=== PATIENT | female | born 1985 | race Caucasian/White ===

== ENCOUNTER 2017-05-10 18:23 | Emergency (ER) | payer MEDICAID ==
[~2017-05-10] VITALS: Ht 160 cm; Wt 80.0 kg
[~2017-05-10 18:23] MED LIST: ACET325T14 PO; ALPR2TAB2 PO; BUSP10TA PO; DIAZ5TAB PO; ESTR2TAB4 PO; GABA600T2 PO; HYDR-3138 PO; HYDR-3307 PO; HYDR2TAB29 PO; HYDR50CA PO; IBUP-1222 PO; IBUP400T PO; PROM25TA10 PO; SERT100T PO; ZIPR60CA2 PO
[2017-05-10 18:48] VITALS: BP 105/53
[2017-05-10] MEDS ORDERED: KETOROLAC 30 MG/1 ML ONE (18:55)
[2017-05-10] MEDS ORDERED: KETOROLAC 30 MG/1 ML IM ONE (19:00)
== END 2017-05-10 20:44 | disposition home or self-care (01) ==
LOC: ED 20:00
DX: S80.01XA Contusion of right knee, initial encounter (principal); S90.31XA Contusion of right foot, initial encounter; S70.02XA Contusion of left hip, initial encounter; S16.1XXA Strain of muscle, fascia and tendon at neck level, initial encounter; Z90.710 Acquired absence of both cervix and uterus; W19.XXXA Unspecified fall, initial encounter; Y93.89 Activity, other specified; Y99.8 Other external cause status; Y92.89 Other specified places as the place of occurrence of the external cause
CPT/HCPCS: 70450; 72125; 73502; 73564; 96372; 99284; J1885

== ENCOUNTER 2018-01-22 14:29 | Emergency (ER) | payer MEDICAID ==
[~2018-01-22] VITALS: Ht 160 cm; Wt 63.0 kg
[~2018-01-22 14:29] MED LIST changes: -HYDR-3138 PO; +HYDR-3237 PO; +IBUP-1221 PO; -IBUP400T PO
[2018-01-22] MEDS ORDERED: KETOROLAC 30 MG/1 ML IM ONE (15:00)
[2018-01-22] MEDS ORDERED: CYCLOBENZAPRINE 10 MG TABLET PO ONE (15:00)
[2018-01-22] MEDS ORDERED: CYCLOBENZAPRINE 10 MG TABLET ONE (15:02)
[2018-01-22] MEDS ORDERED: KETOROLAC 30 MG/1 ML ONE (15:02)
[2018-01-22] MEDS ORDERED: HYDROcodone/APAP 5/325 TABLET ONE (16:21)
[2018-01-22] MEDS ORDERED: HYDROcodone/APAP 5/325 TABLET PO ONE (16:30)
[2018-01-22 16:39] VITALS: BP 101/54
== END 2018-01-22 16:41 | disposition home or self-care (01) ==
LOC: ED 15:00
DX: M26.622 Arthralgia of left temporomandibular joint (principal); F17.200 Nicotine dependence, unspecified, uncomplicated
CPT/HCPCS: 70100; 96372; 99284; J1885

== ENCOUNTER 2018-06-01 08:30 | Emergency (ER) | payer MEDICAID ==
[~2018-06-01] VITALS: Ht 160 cm; Wt 57.7 kg
[2018-06-01] MEDS ORDERED: PROPARACAINE OPHTH 0.5%, 15ML EACHEYE ONE (09:00)
[2018-06-01] MEDS ORDERED: LORazepam 1MG TABLET PO ONE (09:00)
[2018-06-01] MEDS ORDERED: LORazepam 1MG TABLET ONE (09:07)
[2018-06-01] MEDS ORDERED: MAALOX/HYOSCYAMINE/LIDOCAINE 45 ML BTL ONE (09:19)
[2018-06-01] MEDS ORDERED: MAALOX/HYOSCYAMINE/LIDOCAINE 45 ML BTL PO ONE (09:30)
[2018-06-01 11:10] VITALS: BP 122/64
== END 2018-06-01 11:22 | disposition home or self-care (01) ==
LOC: ED 11:16
DX: L53.9 Erythematous condition, unspecified (principal); H57.10 Ocular pain, unspecified eye; G89.29 Other chronic pain; Z90.710 Acquired absence of both cervix and uterus; Y00.XXXA Assault by blunt object, initial encounter; Y93.89 Activity, other specified; Y92.098 Other place in other non-institutional residence as the place of occurrence of the external cause; Y99.8 Other external cause status
CPT/HCPCS: 70450; 99284

== ENCOUNTER 2018-07-19 07:46 | Emergency (ER) | payer MEDICAID ==
[~2018-07-19] VITALS: Ht 160 cm; Wt 62.0 kg
[~2018-07-19 07:46] MED LIST changes: +DIAZ2TAB PO; +LEVO25TA4 PO; +QUET25TA5 PO
[2018-07-19] MEDS ORDERED: DIPH,PERTUSS(ACELL),TET VAC/PF 0.5 ML IM-VACC ONE ×2 (08:30→08:37)
[2018-07-19] MEDS ORDERED: CHLORDIAZEPOXIDE 10 MG CAPSULE PO PRN (08:30)
[2018-07-19] MEDS ORDERED: CHLORDIAZEPOXIDE 10 MG CAPSULE ONE (08:37)
[2018-07-19 09:01] LABS: BASOPHILS # (AUTO) 0.04 x10^3/uL (0-0.1); BASOPHILS % (AUTO) 0 % (0-1); EOSINOPHILS # (AUTO) 0.01 x10^3/uL (0-0.4); EOSINOPHILS % (AUTO) 0 % (1-7); LYMPHOCYTES # (AUTO) 1.69 x10^3/uL (1-3.4); LYMPHOCYTES % (AUTO) 14 % (22-44); MD NO; MEAN CORPUSCULAR HEMOGLOBIN 31.7 pg (27.0-34.8); MEAN CORPUSCULAR HGB CONC 35.4 g/dL (32.4-35.8); MEAN CORPUSCULAR VOLUME 89.4 fL (80-100); MONOCYTES # (AUTO) 0.47 x10^3/uL (0.2-0.8); MONOCYTES % (AUTO) 4 % (2-9); NEUTROPHILS # (AUTO) 9.68 x10^3/uL (1.8-6.8); NEUTROPHILS % (AUTO) 82 % (42-75); PLATELET COUNT 285 x10^3/uL (130-400); RED BLOOD COUNT 4.54 x10^6/uL (3.82-5.3); RED CELL DISTRIBUTION WIDTH 13.2 % (9.6-15.2)
[2018-07-19 09:02] LABS: ALBUMIN 4.6 g/dL (3.4-5.0); ANION GAP 14 mmol/L (5-15); CALCIUM 10.2 mg/dL (8.5-10.1); CHLORIDE 108 mmol/L (98-107); CREATININE 0.84 mg/dL (0.55-1.02)
[2018-07-19 10:03] VITALS: BP 106/56
== END 2018-07-19 10:12 | disposition home or self-care (01) ==
LOC: ED 09:32
DX: S00.81XA Abrasion of other part of head, initial encounter (principal); S10.91XA Abrasion of unspecified part of neck, initial encounter; S60.811A Abrasion of right wrist, initial encounter; G43.909 Migraine, unspecified, not intractable, without status migrainosus; F17.200 Nicotine dependence, unspecified, uncomplicated; F20.9 Schizophrenia, unspecified; F31.9 Bipolar disorder, unspecified; X58.XXXA Exposure to other specified factors, initial encounter; Y93.89 Activity, other specified; Y99.8 Other external cause status; Y92.89 Other specified places as the place of occurrence of the external cause
CPT/HCPCS: 36415; 80048; 82040; 84703; 85025; 90471; 90715; 99284

== ENCOUNTER 2018-08-25 11:22 | Emergency (ER) | payer MEDICAID ==
[~2018-08-25] VITALS: Ht 160 cm; Wt 65.0 kg
[2018-08-25] MEDS ORDERED: DIPHENHYDRAMINE 50 MG/ML, 1ML ONE (11:47)
[2018-08-25 11:57] LABS: BASOPHILS # (AUTO) 0.03 x10^3/uL (0-0.1); BASOPHILS % (AUTO) 0 % (0-1); EOSINOPHILS # (AUTO) 0.07 x10^3/uL (0-0.4); EOSINOPHILS % (AUTO) 1 % (1-7); LYMPHOCYTES # (AUTO) 2.56 x10^3/uL (1-3.4); LYMPHOCYTES % (AUTO) 17 % (22-44); MD NO; MEAN CORPUSCULAR HEMOGLOBIN 30.6 pg (27.0-34.8); MEAN CORPUSCULAR HGB CONC 33.6 g/dL (32.4-35.8); MEAN CORPUSCULAR VOLUME 91.2 fL (80-100); MEAN PLATELET VOLUME 9.3 fL (7.4-10.4); MONOCYTES # (AUTO) 0.98 x10^3/uL (0.2-0.8); MONOCYTES % (AUTO) 6 % (2-9); NEUTROPHILS # (AUTO) 11.63 x10^3/uL (1.8-6.8); NEUTROPHILS % (AUTO) 76 % (42-75); PLATELET COUNT 266 x10^3/uL (130-400); RED BLOOD COUNT 4.56 x10^6/uL (3.82-5.3); RED CELL DISTRIBUTION WIDTH 13.4 % (9.6-15.2)
[2018-08-25] MEDS ORDERED: DIPHENHYDRAMINE 50 MG/ML, 1ML IVPush ONE (12:00)
[2018-08-25 12:05] LABS: ALBUMIN 3.8 g/dL (3.4-5.0); ANION GAP 11 mmol/L (5-15); CALCIUM 9.4 mg/dL (8.5-10.1); CHLORIDE 109 mmol/L (98-107); CREATININE 0.71 mg/dL (0.55-1.02)
[2018-08-25 13:16] VITALS: BP 98/62
[2018-08-25] MEDS ORDERED: DIAZEPAM 5 MG TABLET ONE (13:27)
[2018-08-25] MEDS ORDERED: DIAZEPAM 5 MG TABLET PO ONE (13:30)
[2018-08-25] MEDS ORDERED: ALBUTEROL SULFATE 2.5 MG/3 ML NPPB ONE (13:30)
[2018-08-25] MEDS ORDERED: ALBUTEROL SULFATE 2.5 MG/3 ML ONE (13:32)
== END 2018-08-25 14:32 | disposition home or self-care (01) ==
LOC: ED 12:44
DX: R05 Cough (principal); R06.02 Shortness of breath; R00.2 Palpitations; F31.9 Bipolar disorder, unspecified; F41.9 Anxiety disorder, unspecified; F17.200 Nicotine dependence, unspecified, uncomplicated; Z90.710 Acquired absence of both cervix and uterus; Z87.19 Personal history of other diseases of the digestive system
CPT/HCPCS: 36415; 71045; 80048; 82040; 85025; 93005; 94640; 96374; 99285; J1200; J7613

== ENCOUNTER 2018-09-03 08:57 | Emergency (ER) | payer MEDICAID ==
[~2018-09-03] VITALS: Ht 154.9 cm; Wt 64.0 kg
[2018-09-03] MEDS ORDERED: ACETAMINOPHEN 500 MG TABLET ONE (09:10)
[2018-09-03] MEDS ORDERED: DEXAMETHASONE 4 MG TABLET ONE (09:10)
[2018-09-03] MEDS ORDERED: DEXAMETHASONE 4 MG TABLET PO ONE (09:30)
[2018-09-03] MEDS ORDERED: ACETAMINOPHEN 500 MG TABLET PO ONE (09:30)
[2018-09-03] MEDS ORDERED: maalox/diphenh/lido/sucralfate 5 ML PO PRN (09:30)
[2018-09-03] MEDS ORDERED: CEFTRIAXONE 1,000 MG ONE (10:03)
[2018-09-03] MEDS ORDERED: AZITHROMYCIN 250 MG TABLET ONE (10:04)
[2018-09-03 10:48] VITALS: BP 106/54
[2018-09-03 10:57] LABS: RAPID INFLUENZA A Negative (Negative); RAPID INFLUENZA B Negative (Negative)
[2018-09-03] MEDS ORDERED: AZITHROMYCIN 500 MG TABLET PO ONE (11:00)
[2018-09-03] MEDS ORDERED: CEFTRIAXONE 1,000 MG IM ONE (11:00)
== END 2018-09-03 10:50 | disposition home or self-care (01) ==
LOC: ED 09:21
DX: J18.1 Lobar pneumonia, unspecified organism (principal); J06.9 Acute upper respiratory infection, unspecified; H69.82 Other specified disorders of Eustachian tube, left ear; F31.9 Bipolar disorder, unspecified; Z90.710 Acquired absence of both cervix and uterus; Z87.891 Personal history of nicotine dependence
CPT/HCPCS: 71045; 87400; 96372; 99285; J0696

== ENCOUNTER 2018-09-07 16:45 | Emergency (ER) | payer MEDICAID ==
[~2018-09-07] VITALS: Ht 160 cm; Wt 56.0 kg
[2018-09-07] MEDS ORDERED: ALBUTEROL/IPRATROPIUM 2.5MG/0.5MG, 3 ML NPPB ONE (17:30)
[2018-09-07 17:47] LABS: BASOPHILS # (AUTO) 0.03 x10^3/uL (0-0.1); BASOPHILS % (AUTO) 0 % (0-1); EOSINOPHILS # (AUTO) 0.16 x10^3/uL (0-0.4); EOSINOPHILS % (AUTO) 2 % (1-7); LYMPHOCYTES # (AUTO) 2.67 x10^3/uL (1-3.4); LYMPHOCYTES % (AUTO) 40 % (22-44); MD NO; MEAN CORPUSCULAR HEMOGLOBIN 30.3 pg (27.0-34.8); MEAN CORPUSCULAR HGB CONC 33.5 g/dL (32.4-35.8); MEAN CORPUSCULAR VOLUME 90.5 fL (80-100); MONOCYTES # (AUTO) 0.43 x10^3/uL (0.2-0.8); MONOCYTES % (AUTO) 6 % (2-9); NEUTROPHILS # (AUTO) 3.47 x10^3/uL (1.8-6.8); NEUTROPHILS % (AUTO) 51 % (42-75); PLATELET COUNT 571 x10^3/uL (130-400); RED BLOOD COUNT 3.69 x10^6/uL (3.82-5.3); RED CELL DISTRIBUTION WIDTH 13.3 % (9.6-15.2)
[2018-09-07 18:00] LABS: ALBUMIN 2.4 g/dL (3.4-5.0); ANION GAP 7 mmol/L (5-15); CALCIUM 8.4 mg/dL (8.5-10.1); CHLORIDE 110 mmol/L (98-107)
[2018-09-07 18:01] LABS: CREATININE 0.57 mg/dL (0.55-1.02)
[2018-09-07 19:04] VITALS: BP 100/47
== END 2018-09-07 19:23 | disposition home or self-care (01) ==
LOC: ED 16:47
DX: J18.9 Pneumonia, unspecified organism (principal); F20.9 Schizophrenia, unspecified; F31.9 Bipolar disorder, unspecified; F41.1 Generalized anxiety disorder; Z90.710 Acquired absence of both cervix and uterus; F17.200 Nicotine dependence, unspecified, uncomplicated
CPT/HCPCS: 36415; 71046; 80048; 82040; 85025; 94640; 99285; J7620

== ENCOUNTER 2019-03-13 17:45 | Inpatient (IN) | payer MEDICAID ==
[~2019-03-13] VITALS: Ht 160 cm; Wt 60.3 kg
[~2019-03-13 17:45] MED LIST changes: -GABA600T2 PO; +GABA600T7 PO
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
[2019-03-13 18:30] LABS: MEAN CORPUSCULAR HEMOGLOBIN 29.8 pg (27.0-34.8); MEAN CORPUSCULAR HGB CONC 33.4 g/dL (32.4-35.8); MEAN CORPUSCULAR VOLUME 89.3 fL (80-100); MEAN PLATELET VOLUME 8.8 fL (7.4-10.4); PLATELET COUNT 310 x10^3/uL (130-400); RED BLOOD COUNT 3.95 x10^6/uL (3.82-5.3)
[2019-03-13] MEDS ORDERED: ONDANSETRON 2MG/ML, 2ML IVPush ONE (18:30)
[2019-03-13] MEDS ORDERED: FAMOTIDINE 20 MG/2 ML IVP ONE (18:30)
--- NOTE | 2019-03-13 18:30 | NUR ---
ORQUIDEA TIM AT BEDSIDE.
[2019-03-13 18:34] LABS: ALANINE AMINOTRANSFERASE 50 U/L (12-78); ALBUMIN 2.1 g/dL (3.4-5.0); ANION GAP 11 mmol/L (5-15); CALCIUM 8.3 mg/dL (8.5-10.1); CHLORIDE 91 mmol/L (98-107); CREATININE 0.75 mg/dL (0.55-1.02)
[2019-03-13 18:39] LABS: ALKALINE PHOSPHATASE 82 U/L (45-117); BILIRUBIN,TOTAL 0.4 mg/dL (0.2-1.0); TOTAL PROTEIN 6.4 g/dL (6.4-8.2)
[2019-03-13 18:45] LABS: MD YES
--- NOTE | 2019-03-13 18:48 | NUR ---
[employer] AT BEDSIDE. DELAY IN COLLECTING UA D/T [employer] PRESENT.
[2019-03-13] MEDS ORDERED: FAMOTIDINE 20 MG/2 ML ONE (18:50)
[2019-03-13] MEDS ORDERED: ONDANSETRON 2MG/ML, 2ML ONE (18:50)
[2019-03-13 19:00] LABS: BAND#(MANUAL) 0.95 x10^3/uL; BANDS%(MANUAL) 4 % (0-7); LYMPH#(MANUAL) 1.19 x10^3/uL (1-3.4); LYMPHS% (MANUAL) 5 % (22-44); METAMYELOCYTES# (MANUAL) 0.47 x10^3/uL (0-0); METAMYELOCYTES% (MANUAL) 2 % (0-1)
[2019-03-13] MEDS ORDERED: ONDANSETRON ODT 4 MG PO ONE (19:00)
[2019-03-13] MEDS ORDERED: FAMOTIDINE 20 MG TABLET PO ONE (19:00)
[2019-03-13 19:01] LABS: MONOS#(MANUAL) 0.47 x10^3/uL (0.3-2.7); MONOS% (MANUAL) 2 % (2-9); SEG#(MANUAL) 20.62 x10^3/uL (1.8-6.8); SEGS% (MANUAL) 87 % (42-75)
[2019-03-13 19:09] LABS: PMNS WITH VACUOLES 1+; TOXIC GRAN 2+
[2019-03-13] MEDS ORDERED: MAALOX/HYOSCYAMINE/LIDOCAINE 45 ML BTL ONE (19:09)
[2019-03-13] MEDS ORDERED: ONDANSETRON ODT 4 MG ONE (19:09)
[2019-03-13] MEDS ORDERED: FAMOTIDINE 20 MG TABLET ONE (19:09)
[2019-03-13 19:10] LABS: <PLATELET ESTIMATE> ADEQUATE; <PLT MORPHOLOGY> NORMAL PLT MORPH; <RBC MORPHOLOGY> NORMAL
[2019-03-13] MEDS ORDERED: MAALOX/HYOSCYAMINE/LIDOCAINE 45 ML BTL PO ONE (19:30)
[2019-03-13] MEDS ORDERED: CEFTRIAXONE PMX 1GM/50ML 50 ML ONE (19:39)
--- NOTE | 2019-03-13 19:59 | NUR ---
dual blood cultures drawn by this rn. Abx therapy started.
[2019-03-13] MEDS ORDERED: CEFTRIAXONE PMX 1GM/50ML 50 ML IV ONE ×2 (20:00→22:00)
[2019-03-13] MEDS ORDERED: SODIUM CHLORIDE 0.9% 1,000ML IVBOLUS ONE ×2 (20:00→21:00)
[2019-03-13] MEDS ORDERED: AZITHROMYCIN 500 MG in SODIUM CHLORIDE 0.9% 250 ML IV ONE (20:00)
[2019-03-13] MEDS ORDERED: POTASSIUM CHLORIDE 20 MEQ TAB.ER.PRT PO ONE (20:00)
[2019-03-13] MEDS ORDERED: POTASSIUM CHLORIDE 20 MEQ TAB.ER.PRT ONE (20:36)
--- NOTE | 2019-03-13 20:41 | NUR ---
MD INFORMED OF LOW BP, PT TO RECIEVED SECOND LITER OF IVF.
--- NOTE | 2019-03-13 20:41 | NUR ---
Note daly in ED - 03/13/19 at 2041 by NAIMA MD INFORMED OF LOW BP, PT TO RECIEVED SECOND LITER OF IVF.
--- NOTE | 2019-03-13 20:45 | NUR ---
UA COLLECTED AND SENT TO LAB.
[2019-03-13 21:06] LABS: MICROSCOPIC INDICATED
[2019-03-13 21:30] LABS: CULTURE INDICATED? NO
[2019-03-13] MEDS ORDERED: NICOTINE GUM 2 MG BC PRN (22:00)
[2019-03-13] MEDS ORDERED: ONDANSETRON ODT 4 MG PO PRN (22:00)
[2019-03-13] MEDS ORDERED: BISACODYL 10 MG SUPP PR PRN (22:00)
[2019-03-13] MEDS ORDERED: LIDODERM 5% PATCH TD PRN (22:00)
[2019-03-13] MEDS ORDERED: ACETAMINOPHEN 325 MG TABLET PO PRN (22:00)
[2019-03-13 22:02] LABS: CHLORIDE,URINE RANDOM 18 mmol/L; POTASSIUM,URINE RANDOM 15 mmol/L; SODIUM,URINE RANDOM 6 mmol/L
[2019-03-13 22:19] LABS: OSMOLALITY,URINE 565 mOsm/kg (500-850)
--- NOTE | 2019-03-13 22:43 | NUR ---
ASSUMED CARE OF PT, PT UP TO BR NAD AT THIS TIME
--- NOTE | 2019-03-13 23:06 | NUR ---
AWAITING ADMIT BED
--- NOTE | 2019-03-14 00:05 | NUR ---
TASK RN: REPORT TO CONY CUTLER.
[2019-03-14 00:23] VITALS: BP 78/51
[2019-03-14] MEDS ORDERED: SODIUM CHLORIDE 0.9% 1,000ML IVBOLUS ONE ×2 (01:30→03:00)
[2019-03-14 02:19] VITALS: BP 88/51
[2019-03-14] MEDS ORDERED: CLINDAMYCIN PMX 600MG/50ML 50 ML IV ONE (03:00)
[2019-03-14 03:37] LABS: MEAN CORPUSCULAR HEMOGLOBIN 29.8 pg (27.0-34.8); MEAN CORPUSCULAR HGB CONC 33.4 g/dL (32.4-35.8); MEAN CORPUSCULAR VOLUME 89.3 fL (80-100); MEAN PLATELET VOLUME 8.8 fL (7.4-10.4); PLATELET COUNT 251 x10^3/uL (130-400); RED BLOOD COUNT 3.49 x10^6/uL (3.82-5.3); RED CELL DISTRIBUTION WIDTH 14.3 % (9.6-15.2)
[2019-03-14 03:47] LABS: ANION GAP 8 mmol/L (5-15); CALCIUM 7.4 mg/dL (8.5-10.1); CHLORIDE 104 mmol/L (98-107); CREATININE 0.55 mg/dL (0.55-1.02)
[2019-03-14 03:54] LABS: TROPONIN I < 0.015 ng/mL (0.000-0.045)
[2019-03-14 04:00] LABS: FREE T4 (FREE THYROXINE) 1.66 ng/dL (0.76-1.46)
[2019-03-14 04:15] LABS: BASOPHILS # (AUTO) 0.03 x10^3/uL (0-0.1); BASOPHILS % (AUTO) 0 % (0-1); EOSINOPHILS # (AUTO) 0.03 x10^3/uL (0-0.4); EOSINOPHILS % (AUTO) 0 % (1-7); LYMPHOCYTES # (AUTO) 1.53 x10^3/uL (1-3.4); LYMPHOCYTES % (AUTO) 12 % (22-44); MD SCAN; MONOCYTES # (AUTO) 0.55 x10^3/uL (0.2-0.8); MONOCYTES % (AUTO) 4 % (2-9); NEUTROPHILS # (AUTO) 10.75 x10^3/uL (1.8-6.8); NEUTROPHILS % (AUTO) 83 % (42-75)
[2019-03-14 04:41] VITALS: BP 79/50
[2019-03-14] MEDS: NS + 20MEQ KCL 1,000 ML IV SCH ×2 (04:48→06:12)
[2019-03-14] MEDS: NOREPINEPHRINE 4 MG in SODIUM CHLORIDE 0.9% 246 ML IV PRN ×2 (06:13→12:35)
[2019-03-14] MEDS ORDERED: HYDROCORTISONE 100 MG INJ. IV SCH (09:00)
[2019-03-14] MEDS ORDERED: ALBUMIN HUMAN 5% 500 ML IV ONE (09:00)
[2019-03-14] MEDS: METHADONE 10 MG TABLET PO SCH ×2 (09:58→21:43)
[2019-03-14] MEDS: LORazepam 0.5MG TABLET PO PRN ×2 (09:59→21:43)
[2019-03-14] MEDS: ENOXAPARIN 40 MG/0.4 ML SQ SCH (09:59)
[2019-03-14] MEDS: SODIUM CHLORIDE 0.9% 1,000 ML IV SCH ×3 (10:00→23:11)
[2019-03-14] MEDS ORDERED: MAGNESIUM SULFATE PMX 2GM/50ML 50 ML IV ONE (10:00)
[2019-03-14] MEDS: LEVOTHYROXINE 25 MCG TABLET PO SCH (10:02)
[2019-03-14] MEDS: HYDROCORTISONE 100 MG INJ. IV SCH ×2 (15:48→21:00)
[2019-03-14] MEDS: AZITHROMYCIN 500 MG in SODIUM CHLORIDE 0.9% 250 ML IV SCH (20:19)
[2019-03-14] MEDS: CEFTRIAXONE PMX 2GM/50ML 50 ML IV SCH (23:11)
[2019-03-15] MEDS: NICOTINE GUM 4 MG BC PRN ×2 (01:29→14:35)
[2019-03-15] MEDS: HYDROCORTISONE 100 MG INJ. IV SCH ×5 (02:26→21:56)
[2019-03-15 04:40] LABS: MEAN CORPUSCULAR HEMOGLOBIN 29.8 pg (27.0-34.8); MEAN CORPUSCULAR HGB CONC 32.8 g/dL (32.4-35.8); MEAN CORPUSCULAR VOLUME 90.9 fL (80-100); MEAN PLATELET VOLUME 9.2 fL (7.4-10.4); PLATELET COUNT 279 x10^3/uL (130-400); RED BLOOD COUNT 3.24 x10^6/uL (3.82-5.3); RED CELL DISTRIBUTION WIDTH 14.4 % (9.6-15.2)
[2019-03-15 04:50] LABS: CHLORIDE 116 mmol/L (98-107)
[2019-03-15 04:58] LABS: ALANINE AMINOTRANSFERASE 34 U/L (12-78); ALBUMIN 1.6 g/dL (3.4-5.0); ALKALINE PHOSPHATASE 49 U/L (45-117); ANION GAP 7 mmol/L (5-15); CALCIUM 6.7 mg/dL (8.5-10.1); CREATININE 0.34 mg/dL (0.55-1.02); TOTAL PROTEIN 4.5 g/dL (6.4-8.2)
[2019-03-15 05:00] LABS: BILIRUBIN,TOTAL < 0.1 mg/dL (0.2-1.0)
[2019-03-15 06:08] LABS: MD YES
[2019-03-15 06:25] LABS: BAND#(MANUAL) 0.44 x10^3/uL; BANDS%(MANUAL) 4 % (0-7); LYMPH#(MANUAL) 1.55 x10^3/uL (1-3.4); LYMPHS% (MANUAL) 14 % (22-44); MONOS#(MANUAL) 0.44 x10^3/uL (0.3-2.7); MONOS% (MANUAL) 4 % (2-9); SEG#(MANUAL) 8.66 x10^3/uL (1.8-6.8); SEGS% (MANUAL) 78 % (42-75)
[2019-03-15 06:26] LABS: <PLATELET ESTIMATE> ADEQUATE; <PLT MORPHOLOGY> NORMAL PLT MORPH; <RBC MORPHOLOGY> NORMAL
[2019-03-15] MEDS: SODIUM CHLORIDE 0.9% 1,000 ML IV SCH ×3 (06:43→21:56)
[2019-03-15] MEDS ORDERED: ALBUTEROL SULFATE 2.5 MG/3 ML ONE (06:45)
[2019-03-15] MEDS ORDERED: ALBUTEROL SULFATE 2.5 MG/3 ML NPPB PRN (07:00)
[2019-03-15] MEDS: NOREPINEPHRINE 4 MG in SODIUM CHLORIDE 0.9% 246 ML IV PRN (07:45)
[2019-03-15] MEDS: LORazepam 0.5MG TABLET PO PRN ×2 (08:37→22:04)
[2019-03-15] MEDS: METHADONE 10 MG TABLET PO SCH (08:37)
[2019-03-15] MEDS: MAGNESIUM OXIDE 400 MG TABLET PO SCH (08:37)
[2019-03-15] MEDS: LEVOTHYROXINE 25 MCG TABLET PO SCH (08:37)
[2019-03-15] MEDS: ENOXAPARIN 40 MG/0.4 ML SQ SCH (08:38)
[2019-03-15 09:38] LABS: AMPHETAMINE SCREEN, URINE Negative (Negative); BARBITURATE SCREEN, URINE Negative (Negative); BENZODIAZEPINE SCREEN, URINE Negative (Negative); CANNABINOID SCREEN, URINE Negative (Negative); COCAINE SCREEN, URINE Negative (Negative); METHADONE SCREEN, URINE Positive (Negative); OPIATE SCREEN, URINE Negative (Negative)
[2019-03-15] MEDS ORDERED: DIPHENHYDRAMINE 25 MG CAPSULE ONE (13:20)
[2019-03-15] MEDS ORDERED: MAGNESIUM SULFATE PMX 2GM/50ML 50 ML IV ONE ×2 (16:00)
[2019-03-15] MEDS ORDERED: HYDROCORTISONE 100 MG INJ. IV SCH (16:00)
[2019-03-15] MEDS: POTASSIUM ACID PHOSPHATE 500 MG TABLET.SOL PO SCH ×2 (16:56→23:19)
[2019-03-15 18:14] VITALS: BP 102/68
[2019-03-15 20:39] VITALS: BP 111/74
[2019-03-15] MEDS: AZITHROMYCIN 500 MG in SODIUM CHLORIDE 0.9% 250 ML IV SCH (23:19)
[2019-03-16] MEDS: CEFTRIAXONE PMX 2GM/50ML 50 ML IV SCH (00:51)
[2019-03-16 02:59] VITALS: BP 99/58
[2019-03-16] MEDS ORDERED: GUAIFENESIN ER 600 MG TABLET PO SCH ×2 (04:00→09:00)
[2019-03-16] MEDS: POTASSIUM ACID PHOSPHATE 500 MG TABLET.SOL PO SCH ×2 (05:23→10:16)
[2019-03-16] MEDS: SODIUM CHLORIDE 0.9% 1,000 ML IV SCH ×2 (05:32→13:35)
[2019-03-16 06:14] LABS: MEAN CORPUSCULAR HEMOGLOBIN 29.8 pg (27.0-34.8); MEAN CORPUSCULAR VOLUME 90.1 fL (80-100); MEAN PLATELET VOLUME 9.1 fL (7.4-10.4); PLATELET COUNT 335 x10^3/uL (130-400); RED BLOOD COUNT 3.42 x10^6/uL (3.82-5.3); RED CELL DISTRIBUTION WIDTH 14.6 % (9.6-15.2)
[2019-03-16 06:24] LABS: ALBUMIN 1.8 g/dL (3.4-5.0); ANION GAP 5 mmol/L (5-15); CALCIUM 8.3 mg/dL (8.5-10.1); CHLORIDE 111 mmol/L (98-107)
[2019-03-16 06:30] LABS: ALANINE AMINOTRANSFERASE 48 U/L (12-78); ALKALINE PHOSPHATASE 51 U/L (45-117); BILIRUBIN,TOTAL 0.2 mg/dL (0.2-1.0); CHOL/HDL RATIO 9.7; CHOLESTEROL, TOTAL 107 mg/dL (140-239); CREATININE 0.51 mg/dL (0.55-1.02); HDL CHOL % 10 % (28-40); HDL CHOLESTEROL (DIRECT) 11 mg/dL (40-60); LDL CHOLESTEROL,CALCULATED 64 mg/dL (54-169); LDL/HDL RATIO 5.8 (0.5-3.0); TRIGLYCERIDES 161 mg/dL (50-200); VLDL CHOLESTEROL 32 mg/dL (0-25)
[2019-03-16 07:39] LABS: MD YES
[2019-03-16 07:41] LABS: BAND#(MANUAL) 0.33 x10^3/uL; BANDS%(MANUAL) 3 % (0-7); LYMPH#(MANUAL) 1.65 x10^3/uL (1-3.4); LYMPHS% (MANUAL) 15 % (22-44); MONOS#(MANUAL) 0.44 x10^3/uL (0.3-2.7); MONOS% (MANUAL) 4 % (2-9); SEG#(MANUAL) 8.58 x10^3/uL (1.8-6.8); SEGS% (MANUAL) 78 % (42-75)
[2019-03-16 07:43] LABS: <RBC MORPHOLOGY> NORMAL
[2019-03-16 07:44] LABS: <PLATELET ESTIMATE> ADEQUATE; <PLT MORPHOLOGY> NORMAL PLT MORPH
[2019-03-16 08:05] LABS: TOXIC GRAN 2+
[2019-03-16] MEDS: ENOXAPARIN 40 MG/0.4 ML SQ SCH (08:48)
[2019-03-16] MEDS: HYDROCORTISONE 100 MG INJ. IV SCH ×2 (08:48→15:45)
[2019-03-16] MEDS: MAGNESIUM OXIDE 400 MG TABLET PO SCH (08:48)
[2019-03-16] MEDS: LEVOTHYROXINE 25 MCG TABLET PO SCH (08:48)
[2019-03-16 09:36] VITALS: BP 93/58
[2019-03-16 14:37] VITALS: BP 93/56
[2019-03-16] MEDS ORDERED: DOXY100C2 PO (17:29)
[2019-03-16] MEDS ORDERED: CEFD300C37 PO (17:29)
[2019-03-17] MEDS ORDERED: ESTR2TAB PO (18:29)
[2019-03-17] MEDS ORDERED: LEVO25TA4 PO (18:29)
== END 2019-03-16 18:45 | disposition home or self-care (01) | DRG 871 ==
LOC: ED 18:36 → EDIP 19:57 → 4WST 03-14 00:22 → CCU 03-14 05:25 → 4NOR 03-15 17:38
PROVIDERS: ADMIT Internal Medicine; ATTEND Internal Medicine
PROC: 02HV33Z Insertion of Infusion Device into Superior Vena Cava, Percutaneous Approach (ICD-10-PCS; principal; 2019-03-14)
PROC: B548ZZA Ultrasonography of Superior Vena Cava, Guidance (ICD-10-PCS; 2019-03-14)
DX: A41.9 Sepsis, unspecified organism (principal); R65.21 Severe sepsis with septic shock; J15.9 Unspecified bacterial pneumonia; E87.1 Hypo-osmolality and hyponatremia; F17.203 Nicotine dependence unspecified, with withdrawal; T76.21XA Adult sexual abuse, suspected, initial encounter; D63.8 Anemia in other chronic diseases classified elsewhere; E03.9 Hypothyroidism, unspecified; E83.39 Other disorders of phosphorus metabolism; E83.42 Hypomagnesemia; E86.0 Dehydration; E87.6 Hypokalemia; E88.09 Other disorders of plasma-protein metabolism, not elsewhere classified; F15.10 Other stimulant abuse, uncomplicated; F20.9 Schizophrenia, unspecified; F31.9 Bipolar disorder, unspecified; I10 Essential (primary) hypertension; J45.909 Unspecified asthma, uncomplicated; Z59.0 Homelessness; Z63.8 Other specified problems related to primary support group; Z90.710 Acquired absence of both cervix and uterus; Z91.19 Patient's noncompliance with other medical treatment and regimen
CPT/HCPCS: 36415; 36573; 71045; 76700; 80048; 80053; 80061; 80307; 81001; 82150; 82436; 82533; 83690; 83735; 83930; 83935; 84100; 84133; 84145; 84300; 84439; 84443; 84484; 84703; 85025; 87040; 87070; 87081; 87205; 89055; 93005; 94640; 96365; 96375; G0378; J0456; J0696; J1650; J3480; P9045; Q0162; C1751; J1720; J3475; J7030; J7050

== ENCOUNTER 2019-03-17 17:53 | Emergency (ER) | payer MEDICAID ==
[~2019-03-17] VITALS: Ht 160 cm; Wt 54.5 kg
[~2019-03-17 17:53] MED LIST changes: +CEFD300C37 PO; +DOXY100C2 PO
[2019-03-17] MEDS ORDERED: ESTR2TAB PO (18:29)
[2019-03-17] MEDS ORDERED: LEVO25TA4 PO (18:29)
[2019-03-17] MEDS ORDERED: SODIUM CHLORIDE 0.9% 1,000ML IVBOLUS ONE (18:30)
[2019-03-17 19:00] LABS: PROTHROMBIN TIME 10.5 Seconds (9.6-11.5)
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
[2019-03-17 19:04] LABS: ALANINE AMINOTRANSFERASE 55 U/L (12-78); ALBUMIN 2.2 g/dL (3.4-5.0); ANION GAP 9 mmol/L (5-15); CHLORIDE 109 mmol/L (98-107)
[2019-03-17 19:08] LABS: MEAN CORPUSCULAR HEMOGLOBIN 27.9 pg (27.0-34.8); MEAN CORPUSCULAR HGB CONC 30.8 g/dL (32.4-35.8); MEAN CORPUSCULAR VOLUME 90.5 fL (80-100); MEAN PLATELET VOLUME 7.9 fL (7.4-10.4); PLATELET COUNT 556 x10^3/uL (130-400); RED BLOOD COUNT 4.15 x10^6/uL (3.82-5.3); RED CELL DISTRIBUTION WIDTH 14.4 % (9.6-15.2)
[2019-03-17 19:10] LABS: ALKALINE PHOSPHATASE 59 U/L (45-117); BILIRUBIN,TOTAL 0.4 mg/dL (0.2-1.0); CREATININE 0.54 mg/dL (0.55-1.02); TOTAL PROTEIN 5.7 g/dL (6.4-8.2); TROPONIN I < 0.015 ng/mL (0.000-0.045)
[2019-03-17 19:28] LABS: MD YES
--- NOTE | 2019-03-17 19:30 | NUR ---
PATIENT AMB TO BATHROOM WITH STEADY GAIT, UA COLLECTED AND SENT TO LAB.
[2019-03-17 19:31] LABS: LYMPHS% (MANUAL) 24 % (22-44); MONOS#(MANUAL) 0.97 x10^3/uL (0.3-2.7); MONOS% (MANUAL) 8 % (2-9); SEG#(MANUAL) 8.23 x10^3/uL (1.8-6.8); SEGS% (MANUAL) 68 % (42-75)
[2019-03-17 19:32] LABS: <RBC MORPHOLOGY> NORMAL; TOXIC GRAN 2+
[2019-03-17 19:33] LABS: <PLATELET ESTIMATE> INCREASED; <PLT MORPHOLOGY> NORMAL PLT MORPH
--- NOTE | 2019-03-17 19:38 | NUR ---
TASK RN NOTE: PT A&O, RESPS EVEN AND UNLABORED. VSS. PT AWAITING URINE RESULTS AND DISPO AT THIS TIME. CALL LIGHT IN REACH. SHAHID.
[2019-03-17 19:39] LABS: MICROSCOPIC AUTO
[2019-03-17 19:40] LABS: CULTURE INDICATED? YES
--- NOTE | 2019-03-17 19:56 | NUR ---
RESULTS BACK, CHART UP FOR RECHECK.
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
--- NOTE | 2019-03-17 21:14 | NUR ---
REPORT RECEIVED FROM CONY HARPER, CARE ASSUMED AT THIS TIME.
--- NOTE | 2019-03-17 21:24 | NUR ---
EDMD Ady at bedside. pt is a&o, resps even and unlabored. pt reports to MD that abd pain is "tolerable" at this time, EDMD discussed POC (to discharge with prescriptions), pt agreeable to plan. awaiting dc orders and paperwork from MD at this time.
[2019-03-17 21:42] VITALS: BP 114/66
== END 2019-03-17 22:01 | disposition home or self-care (01) ==
LOC: ED 20:31
DX: R60.0 Localized edema (principal); K85.00 Idiopathic acute pancreatitis without necrosis or infection; Z72.9 Problem related to lifestyle, unspecified; F15.10 Other stimulant abuse, uncomplicated; Z90.710 Acquired absence of both cervix and uterus; F17.200 Nicotine dependence, unspecified, uncomplicated; F20.9 Schizophrenia, unspecified; R19.7 Diarrhea, unspecified
CPT/HCPCS: 36415; 71045; 80053; 80307; 81001; 83605; 83690; 83735; 84145; 84484; 85025; 85610; 87040; 87086; 93005; 96360; 99284; J7030

== ENCOUNTER 2020-05-04 01:29 | Emergency (ER) | payer MEDICAID ==
[~2020-05-04 01:29] MED LIST changes: +ESTR2TAB PO; +GABA-827 PO; +HYDR-3240 PO; +HYDR-3246 PO; -HYDR-3307 PO; +NAPR220C2 PO; +QUET100T4 PO
[2020-05-04 01:43] VITALS: BP 126/86
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
== END 2020-05-04 04:14 | disposition home or self-care (01) ==
LOC: ED 01:52
DX: S16.1XXA Strain of muscle, fascia and tendon at neck level, initial encounter (principal); S20.211A Contusion of right front wall of thorax, initial encounter; R55 Syncope and collapse; M25.552 Pain in left hip; J45.909 Unspecified asthma, uncomplicated; G43.909 Migraine, unspecified, not intractable, without status migrainosus; M79.7 Fibromyalgia; F17.200 Nicotine dependence, unspecified, uncomplicated; Z90.710 Acquired absence of both cervix and uterus; Y04.8XXA Assault by other bodily force, initial encounter; Y93.89 Activity, other specified; Y92.098 Other place in other non-institutional residence as the place of occurrence of the external cause; Y99.8 Other external cause status
CPT/HCPCS: 71046; 72125; 72170; 99284

== ENCOUNTER 2020-10-18 21:03 | Emergency (ER) | payer MEDICAID ==
[~2020-10-18] VITALS: Ht 160 cm; Wt 57.0 kg
[2020-10-18 21:07] VITALS: BP 113/34
[2020-10-18] MEDS ORDERED: LIDOCAINE-MPF 1%, 5ML ONE (21:17)
[2020-10-18] MEDS ORDERED: BUPIVACAINE 0.25% ONE (21:17)
[2020-10-18] MEDS ORDERED: BUPIVACAINE 0.25% INFIL ONE (21:30)
[2020-10-18] MEDS ORDERED: LIDOCAINE-MPF 1%, 5ML INFIL ONE (21:30)
--- NOTE | 2020-10-18 21:48 | NUR ---
TASK RN: RN TO ROOM TO DC PATIENT. PT TEARFUL, STATING THAT HER PAIN IS NOT RELIEVED. DISCUSSION HAD WITH ERP, NO NEW ORDERS RECEIVED. DC EDUCATION PROVIDED, PT TEARFUL. STATES "I HATE THIS HOSPITAL". AMBULATED STEADILY TO DC WITH RN AND FRIEND.
== END 2020-10-18 21:53 | disposition home or self-care (01) ==
LOC: ED 21:45
DX: K08.89 Other specified disorders of teeth and supporting structures (principal); J45.909 Unspecified asthma, uncomplicated; F17.210 Nicotine dependence, cigarettes, uncomplicated; Z90.710 Acquired absence of both cervix and uterus
CPT/HCPCS: 64400; 99284; 99406

== ENCOUNTER 2021-01-10 20:11 | Emergency (ER) | payer MEDICAID ==
[~2021-01-10] VITALS: Ht 160 cm; Wt 54.7 kg
[~2021-01-10 20:11] MED LIST changes: +HYDR-1067 PO; -HYDR-3240 PO; -HYDR-3246 PO; +HYDR-3248 PO
--- NOTE | 2021-01-10 20:35 | NUR ---
Pt poor historian- reports she was seen at [facility] yesterday for the "same problem I'm having now"- when asked what her problem is now she states belly pain. When asked when the belly pain started she states 2 hrs ago. Pt reports she left [facility] yesterday. Pt restless, anxious.
[2021-01-10] MEDS ORDERED: KETOROLAC 30 MG/1 ML ONE (20:48)
[2021-01-10] MEDS ORDERED: ACETAMINOPHEN 500 MG TABLET ONE (20:48)
--- NOTE | 2021-01-10 20:55 | NUR ---
UA collected and walked to lab. Lab at bedside.
--- NOTE | 2021-01-10 20:58 | NUR ---
Medicated per eMAR. Unable to scan in meds as computer in pt's room does not work. Pt to imaging.
[2021-01-10] MEDS ORDERED: KETOROLAC 30 MG/1 ML IM ONE (21:00)
[2021-01-10] MEDS ORDERED: ACETAMINOPHEN 500 MG TABLET PO ONE (21:00)
[2021-01-10 21:06] LABS: MICROSCOPIC NOT IND
[2021-01-10 21:11] LABS: MEAN CORPUSCULAR HEMOGLOBIN 30.1 pg (27.0-34.8); MEAN CORPUSCULAR HGB CONC 33.8 g/dL (32.4-35.8); MEAN PLATELET VOLUME 8.3 fL (7.4-10.4); PLATELET COUNT 145 x10^3/uL (130-400); RED BLOOD COUNT 4.61 x10^6/uL (3.82-5.3); RED CELL DISTRIBUTION WIDTH 13.5 % (9.6-15.2)
[2021-01-10 21:18] LABS: ALANINE AMINOTRANSFERASE 27 U/L (12-78); ALBUMIN 3.6 g/dL (3.4-5.0); ANION GAP 5 mmol/L (5-15); CALCIUM 8.9 mg/dL (8.5-10.1); CHLORIDE 111 mmol/L (98-107); CREATININE 0.77 mg/dL (0.55-1.02)
[2021-01-10 21:20] LABS: ALKALINE PHOSPHATASE 76 U/L (45-117); BILIRUBIN,TOTAL 0.2 mg/dL (0.2-1.0); TOTAL PROTEIN 6.9 g/dL (6.4-8.2)
--- NOTE | 2021-01-10 21:24 | NUR ---
break rn: PT BACK FROM IMAGING. PT HAS NO NEEDS AT THIS TIME. CALL LIGHT IN REACH
[2021-01-10 21:33] LABS: MD YES
--- NOTE | 2021-01-10 21:35 | NUR ---
Pt sort of sobbing, no tears, reports the pain meds did not help.
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
[2021-01-10 21:46] LABS: BAND#(MANUAL) 0.72 x10^3/uL; BANDS%(MANUAL) 10 % (0-7); EOS#(MANUAL) 0.07 x10^3/uL (0.0-0.4); EOS% (MANUAL) 1 % (1-7); LYMPH#(MANUAL) 2.95 x10^3/uL (1-3.4); LYMPHS% (MANUAL) 41 % (22-44); MONOS#(MANUAL) 0.29 x10^3/uL (0.3-2.7); MONOS% (MANUAL) 4 % (2-9); REACTIVE LYMPHS # (MANUAL) 1.01 x10^3/uL (0-0); REACTIVE LYMPHS % (MANUAL) 14 % (0-0); SEG#(MANUAL) 2.16 x10^3/uL (1.8-6.8); SEGS% (MANUAL) 30 % (42-75)
[2021-01-10 21:48] LABS: <RBC MORPHOLOGY> NORMAL
[2021-01-10 21:49] LABS: <PLATELET ESTIMATE> ADEQUATE; <PLT MORPHOLOGY> NORMAL PLT MORPH
[2021-01-10] MEDS ORDERED: CEFTRIAXONE 1,000 MG IM ONE (22:30)
[2021-01-10] MEDS ORDERED: CEFTRIAXONE 1,000 MG ONE (22:51)
--- NOTE | 2021-01-10 22:56 | NUR ---
Blood cultures drawn, medicated per eMAR. Med not scanned in as computer in pt's room does not work.
[2021-01-10 22:57] VITALS: BP 124/90
--- NOTE | 2021-01-10 23:22 | NUR ---
Provided pt taxi voucher. Pt agrees with and understands discharge plan and instructions.
== END 2021-01-10 23:27 | disposition home or self-care (01) ==
LOC: ED 20:47
DX: F15.20 Other stimulant dependence, uncomplicated (principal); R10.9 Unspecified abdominal pain
CPT/HCPCS: 36415; 76700; 80053; 81003; 83690; 85025; 87040; 96372; 99284; J0696; J1885

== ENCOUNTER 2021-05-06 16:29 | Emergency (ER) | payer MEDICAID ==
[~2021-05-06] VITALS: Ht 160 cm; Wt 54.5 kg
[~2021-05-06 16:29] MED LIST changes: -HYDR-1067 PO; +HYDR-2214 PO
[2021-05-06 16:35] VITALS: BP 112/72
--- NOTE | 2021-05-06 18:15 | NUR ---
radiographer cardiac catheterization: attempted to call patient to room from lobby, no answer in lobby
--- NOTE | 2021-05-06 18:35 | NUR ---
loading checker: attempted to call patient to room from lobby, no answer in lobby
--- NOTE | 2021-05-06 18:59 | NUR ---
pad machine operator: attempted to call patient to room from lobby, no answer in lobby
== END 2021-05-06 19:10 | disposition left against medical advice (07) ==
LOC: ED 17:50
DX: R51.9 Headache, unspecified (principal); R53.1 Weakness; Z53.21 Procedure and treatment not carried out due to patient leaving prior to being seen by health care provider

== ENCOUNTER 2021-07-15 19:45 | Emergency (ER) | payer MEDICAID ==
[~2021-07-15] VITALS: Ht 160 cm; Wt 52.3 kg
[~2021-07-15 19:45] MED LIST changes: -DOXY100C2 PO; +DOXY100C5 PO
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
[2021-07-15 19:57] VITALS: BP 117/78
[2021-07-15] MEDS ORDERED: ACETAMINOPHEN 325 MG TABLET PO ONE (20:30)
[2021-07-15 20:41] LABS: MICROSCOPIC INDICATED
[2021-07-15] MEDS ORDERED: ACETAMINOPHEN 325 MG TABLET ONE (21:32)
--- NOTE | 2021-07-15 21:41 | NUR ---
Patient given discharge instructions and they have confirmed that they understand the instructions. Patient ambulatory with steady gait. NAD, all questions answered appropriately, denies additional needs at this time. No personal belongings left in room after discharge.
== END 2021-07-15 21:43 | disposition home or self-care (01) ==
LOC: ED 21:11
DX: N30.01 Acute cystitis with hematuria (principal); K04.7 Periapical abscess without sinus; F17.200 Nicotine dependence, unspecified, uncomplicated; G43.909 Migraine, unspecified, not intractable, without status migrainosus; J45.909 Unspecified asthma, uncomplicated; G89.29 Other chronic pain; Z90.710 Acquired absence of both cervix and uterus
CPT/HCPCS: 81001; 87077; 87086; 87186; 99283